=== PATIENT | male | born 1940 | race African-American/Black ===

== ENCOUNTER 2019-04-25 12:34 | Inpatient (IN) | payer OTHER ==
[~2019-04-25] VITALS: Ht 185.4 cm; Wt 68.0 kg
[2019-04-25] MEDS ORDERED: SODIUM CHLORIDE 0.9% 1,000 ML IV ONE (13:57)
[2019-04-25 14:22] LABS: BASOPHILS % 0.5 % (0.0-2.0); EOSINOPHILS % 1.1 % (0.0-5.0); HEMATOCRIT. 34.2 % (42.0-52.0); HEMOGLOBIN. 11.5 g/dL (14.0-18.0); LYMPHOCYTES % 7.1 % (20.0-50.0); MEAN CORPUSCULAR VOLUME 98.3 fL (80.0-94.0); MEAN PLATELET VOLUME 7.7 fl (7.4-10.4); MONOCYTES % 9.9 % (2.0-8.0); NEUTROPHILS % 81.4 % (40.0-76.0); PLATELET 471 x1000/uL (130-400); RED BLOOD CELL COUNT 3.48 mill/uL (4.7-6.1); RED CELL DISTRIBUTION WIDTH 14.9 % (11.6-14.6)
[2019-04-25 14:25] LABS: PROTHROMBIN TIME 10.4 sec (9.6-11.0)
[2019-04-25 14:26] LABS: CHLORIDE 100 mEq/L (98-107)
[2019-04-25] MEDS ORDERED: SODIUM CHLORIDE 0.9% 1000ML BAG (SEPSIS BOLUS) IV ONE (15:15)
[2019-04-25] MEDS ORDERED: POTASSIUM CHLORIDE 20MEQ TABLET SR PO ONE (16:00)
[2019-04-25] MEDS ORDERED: CLONIDINE 0.1MG TABLET PO PRN (16:30)
[2019-04-25] MEDS ORDERED: GUAIFENESIN 200MG/10ML SUGAR FREE UDC PO PRN (16:30)
[2019-04-25] MEDS ORDERED: IPRATROPIUM/ALBUTEROL 0.5-3(2.5)MG/3ML NEB NEB PRN (16:30)
[2019-04-25] MEDS ORDERED: ONDANSETRON HCL 4MG/2ML INJ IV PRN (16:30)
[2019-04-25] MEDS ORDERED: ACETAMINOPHEN 650MG SUPP PR PRN (16:30)
[2019-04-25] MEDS ORDERED: NA PHOS,M-B/NA PHOS,DI-BA ENEMA 118ML PR PRN (16:30)
[2019-04-25] MEDS ORDERED: MAGNESIUM/ALUMINUM HYDROXIDE/SIMETHICONE 30ML UDC PO PRN (16:30)
[2019-04-25] MEDS ORDERED: ACETAMINOPHEN 325MG TABLET PO PRN (16:30)
[2019-04-25] MEDS ORDERED: LORAZEPAM 0.5MG TABLET PO PRN (16:30)
[2019-04-25] MEDS ORDERED: DOCUSATE SODIUM 100MG CAPSULE PO PRN (16:30)
[2019-04-25] MEDS ORDERED: DIPHENHYDRAMINE 50MG/ML VIAL IV PRN (16:30)
[2019-04-25] MEDS ORDERED: LEVOFLOXACIN 500MG PREMIX 100 ML IV ONE (17:00)
[2019-04-25] MEDS: HYDROCODONE/ACETAMINOPHEN 5/325MG TABLET PO PRN (17:06)
[2019-04-25] MEDS ORDERED: POTASSIUM CHLORIDE 20MEQ TABLET SR PO NR (22:09)
[2019-04-25 22:30] VITALS: BP 160/63
[2019-04-25] MEDS: FAMOTIDINE 20MG TABLET PO SCH (23:56)
[2019-04-25] MEDS: SODIUM CHLORIDE 0.45% 1,000 ML IV SCH (23:57)
[2019-04-26 00:08] LABS: CREATINE KINASE 27 IU/L (39-308)
[2019-04-26 00:09] LABS: CREATINE KINASE MB FRACTION < 1.0 ng/mL (0.5-3.6)
[2019-04-26] MEDS ORDERED: LOSA25TA26 PO (00:31)
[2019-04-26] MEDS: HYDROCODONE/ACETAMINOPHEN 5/325MG TABLET PO PRN (03:23)
[2019-04-26 07:05] LABS: BASOPHILS % 0.4 % (0.0-2.0); EOSINOPHILS % 3.1 % (0.0-5.0); HEMATOCRIT. 31.8 % (42.0-52.0); HEMOGLOBIN. 10.7 g/dL (14.0-18.0); LYMPHOCYTES % 16.9 % (20.0-50.0); MEAN CORPUSCULAR HEMOGLOBIN 32.8 pg (28.0-32.0); MEAN CORPUSCULAR VOLUME 97.3 fL (80.0-94.0); MEAN PLATELET VOLUME 8.3 fl (7.4-10.4); NEUTROPHILS % 67.6 % (40.0-76.0); PLATELET 490 x1000/uL (130-400); RED BLOOD CELL COUNT 3.27 mill/uL (4.7-6.1); RED CELL DISTRIBUTION WIDTH 15.2 % (11.6-14.6)
[2019-04-26 07:35] LABS: CHLORIDE 104 mEq/L (98-107)
[2019-04-26 07:46] LABS: CREATINE KINASE 25 IU/L (39-308); CREATINE KINASE MB FRACTION < 1.0 ng/mL (0.5-3.6); LDL CHOLESTEROL 82 mg/dL (5-100); T4 FREE 1.28 ng/dL (0.76-1.46)
[2019-04-26 07:47] LABS: HDL CHOLESTEROL 58 mg/dL (40-59)
[2019-04-26] MEDS: ASPIRIN 81MG EC TABLET PO SCH (09:32)
[2019-04-26] MEDS: ENOXAPARIN 40MG/0.4ML SYR SUBCUT SCH (09:32)
[2019-04-26] MEDS ORDERED: POTASSIUM CHLORIDE 20MEQ TABLET SR PO SCH (11:00)
[2019-04-26] MEDS ORDERED: AMLODIPINE 5MG TABLET PO SCH (11:00)
[2019-04-26] MEDS ORDERED: POTASSIUM CHLORIDE INJ 40 MEQ in DEXT 5% WATER 250 ML IV SCH (13:00)
[2019-04-26] MEDS: SODIUM CHLORIDE 0.45% 1,000 ML IV SCH (13:44)
[2019-04-26 16:00] VITALS: BP_SYST 121; BP_SYST 136; BP_SYST 138; BP_DIAS 65; BP_DIAS 79; BP_DIAS 82
[2019-04-26] MEDS ORDERED: MORPHINE SULFATE 2 MG/ML CPJ (NOT FOR IM USE) IV PRN (16:30)
[2019-04-26] MEDS ORDERED: COLCHICINE 0.6MG TABLET PO NR (16:42)
[2019-04-26] MEDS: ALLOPURINOL 100 MG TABLET PO SCH (17:39)
[2019-04-26] MEDS ORDERED: MAGNESIUM 4 G PREMIX 100 ML IV NR (18:00)
[2019-04-26 19:31] LABS: *AMPHETAMINES SCREEN URINE NEGATIVE (NEGATIVE); *BARBITURATES SCREEN URINE NEGATIVE (NEGATIVE); *BENZODIAZEPINES SCREEN URINE NEGATIVE (NEGATIVE); *COCAINE SCREEN URINE NEGATIVE (NEGATIVE); METHADONE URINE SCREEN NEGATIVE (NEGATIVE)
[2019-04-26 19:32] LABS: CANNABINOID URINE SCREEN NEGATIVE (NEGATIVE); OPIATES URINE SCREEN PRESUMTIVE POSITIVE (NEGATIVE); PHENCYCLIDINE URINE SCREEN NEGATIVE (NEGATIVE)
[2019-04-26 20:00] VITALS: BP_SYST 135; BP_SYST 146; BP_DIAS 70; BP_DIAS 77; BP_DIAS 80
[2019-04-26] MEDS ORDERED: LEVOFLOXACIN 500MG PREMIX 100 ML IV SCH ×2 (20:00→22:00)
[2019-04-26] MEDS: FAMOTIDINE 20MG TABLET PO SCH (21:25)
[2019-04-27] VITALS: BP 143/80
[2019-04-27 00:17] LABS: CHLORIDE 99 mEq/L (98-107)
[2019-04-27] MEDS ORDERED: POTASSIUM CHLORIDE INJ 40 MEQ in DEXT 5% WATER 250 ML IV SCH (02:00)
[2019-04-27 04:00] VITALS: BP 136/79
[2019-04-27 05:10] LABS: BASOPHILS % 0.5 % (0.0-2.0); EOSINOPHILS % 1.4 % (0.0-5.0); HEMATOCRIT. 31.8 % (42.0-52.0); MEAN CORPUSCULAR HEMOGLOBIN 33.3 pg (28.0-32.0); MEAN CORPUSCULAR VOLUME 96.1 fL (80.0-94.0); MONOCYTES % 9.1 % (2.0-8.0); PLATELET 531 x1000/uL (130-400); RED CELL DISTRIBUTION WIDTH 15.2 % (11.6-14.6)
[2019-04-27 06:01] LABS: VITAMIN B12 SERUM 207 pg/mL (211-911)
[2019-04-27 06:15] LABS: CHLORIDE 101 mEq/L (98-107)
[2019-04-27 06:21] LABS: PHOSPHORUS 1.8 mg/dL (2.5-4.9)
[2019-04-27 08:00] VITALS: BP 143/81
[2019-04-27] MEDS ORDERED: MAGNESIUM 1 G PREMIX 100 ML IV ONE (08:00)
[2019-04-27] MEDS: ASPIRIN 81MG EC TABLET PO SCH (09:52)
[2019-04-27] MEDS: ENOXAPARIN 40MG/0.4ML SYR SUBCUT SCH (09:52)
[2019-04-27] MEDS: ALLOPURINOL 100 MG TABLET PO SCH (09:52)
[2019-04-27] MEDS: SODIUM CHLORIDE 0.45% 1,000 ML IV SCH (09:55)
[2019-04-27] MEDS ORDERED: POTASSIUM CHLORIDE 20MEQ TABLET SR PO SCH (11:00)
[2019-04-27] MEDS ORDERED: AMLODIPINE 5MG TABLET PO SCH (11:10)
[2019-04-27 12:00] VITALS: BP 129/69
[2019-04-27] MEDS ORDERED: MAGNESIUM 1 G PREMIX 100 ML IV SCH (12:00)
[2019-04-27] MEDS ORDERED: POTASSIUM PHOS,M-BASIC-D-BASIC 15 MMOL in DEXT 5% WATER 245 ML IV SCH (12:00)
[2019-04-27] MEDS ORDERED: MAGNESIUM 2 G PREMIX 50 ML IV SCH (13:00)
[2019-04-27 16:00] VITALS: BP 129/74
[2019-04-27] MEDS ORDERED: POTA20TA82 PO (16:00)
[2019-04-27] MEDS ORDERED: HYDR-4001 MT (16:00)
[2019-04-27] MEDS ORDERED: ASPI-1497 MT (16:00)
[2019-04-27] MEDS ORDERED: POTASSIUM-SODIUM PHOSPHATE POWDER PACKET PO NR (17:15)
[2019-04-27 18:04] LABS: CHLORIDE 99 mEq/L (98-107)
== END 2019-04-27 20:39 | disposition home or self-care (01) | DRG 73 ==
LOC: ER 12:40 → 7WST 16:13 → EDBEDREQTM 16:17 → EDBEDREQ 16:17 → SUPCPDRO 16:23 → ENRESERV 21:23
PROVIDERS: ADMIT Internal Medicine; ATTEND Internal Medicine
DX: G90.8 Other disorders of autonomic nervous system (principal); I50.33 Acute on chronic diastolic (congestive) heart failure; E87.2 Acidosis; Z68.1 Body mass index [BMI] 19.9 or less, adult; E44.0 Moderate protein-calorie malnutrition; M48.02 Spinal stenosis, cervical region; D64.9 Anemia, unspecified; E83.42 Hypomagnesemia; E86.0 Dehydration; E87.6 Hypokalemia; M13.0 Polyarthritis, unspecified; M47.9 Spondylosis, unspecified; E53.8 Deficiency of other specified B group vitamins; M50.21 Other cervical disc displacement, high cervical region; I11.0 Hypertensive heart disease with heart failure; R62.7 Adult failure to thrive; E88.09 Other disorders of plasma-protein metabolism, not elsewhere classified; R63.4 Abnormal weight loss; M79.672 Pain in left foot; H31.8 Other specified disorders of choroid
CPT/HCPCS: 36415; 70551; 71045; 72141; 73070; 73630; 80048; 80053; 80061; 80305; 82550; 82553; 82607; 83036; 83605; 83735; 83880; 84100; 84439; 84443; 84484; 84550; 85025; 93005; 93306; 93880; 93970; 97162; 99291; J1200; J1650; J1956; J3475; J3480; J3490; J7030; J7060